=== PATIENT | male | born 1980 | race Caucasian/White ===

== ENCOUNTER 2016-12-08 22:32 | Emergency (ER) | payer OTHER ==
--- NOTE | 2016-12-08 22:58 | ED ORDER SUMMARY ---
..... Patient: RAFAELA LEW OrderSheet [facility] VisitID: [id number] [address] [place] [address] 36y, M Registration Date/Time: 12/08/2016 ORDER SHEET Weight: 77.1 kg (stated) Allergies: No Known Drug Allergy GENERAL ORDERS: MEDICATION ORDERS: Amoxicillin PO 500 mg (NOW) (22:57 12/08/2016 Antony Mukherjee.ANam-Espinoza) (Ack 22:57 JAREDanders R.N.) (23:00 JSanders R.N.) IV FLUIDS: ORDER SHEET NOTES: [Electronically signed by Fatuma Adler R.N. (23:06 12/08/2016)] [Electronically signed by Telma Hartman P.A.-C (23:06 12/08/2016)] [Electronically locked/signed by Fatuma Adler R.N. (23:06 12/08/2016)]
--- NOTE | 2016-12-08 22:58 | ED ORDER SUMMARY ---
..... Patient: RAFAELA LEW OrderSheet [facility] VisitID: [id number] [address] [place] [address] 36y, M Registration Date/Time: 12/08/2016 ORDER SHEET Weight: 77.1 kg (stated) Allergies: No Known Drug Allergy GENERAL ORDERS: MEDICATION ORDERS: Amoxicillin PO 500 mg (NOW) (22:57 12/08/2016 Antony Mukherjee.ANam-Espinoza) (Ack 22:57 JAREDanders R.N.) (23:00 JSanders R.N.) IV FLUIDS: ORDER SHEET NOTES: [Electronically signed by Fatuma Adler R.N. (23:06 12/08/2016)] [Electronically signed by Telma Hartman P.A.-C (23:06 12/08/2016)] [Electronically locked/signed by Fatuma Adler R.N. (23:06 12/08/2016)]
--- NOTE | 2016-12-08 22:58 | ED CLINICAL REPORT ---
Clinical Report - Physicians/Mid Levels [facility] [address] [place] [address] 12/08/2016 22:32 [id number] Time Seen: 23:01 Dec 08 2016. Arrived- By private vehicle. Historian- patient. HISTORY OF PRESENT ILLNESS Chief Complaint: DENTAL PAIN. This started today and is still present. Pain described as mild. No sore throat or mouth sores. He has had toothache. (Patient reports while eating chicken part of his left lower tooth and now having pain. Reports no difficulty swallowing. Denies any fevers or chills. Denies a cough. Patient is attempted to see a dentist next Monday or Monday.). REVIEW OF SYSTEMS No fever, cough, nausea or headache. All systems otherwise negative, except as recorded above. PAST HISTORY Problems: Dental Caries. Cervical Radiculopathy. Childhood heart murmur. Additional Surgeries: Knee Surgery. Right wrist nerve repair. Vasectomy. Medications: None. Allergies: No Known Drug Allergy. SOCIAL HISTORY Smoker- current status unknown. No drug use. ADDITIONAL NOTES The nursing notes have been reviewed. PHYSICAL EXAM Vital Signs: 12/08/2016 22:37 BP: 129/80. HR: 86. RR: 18. O2 saturation: 100%. Temp: 98.4 F. Pain level now: 8/10. Appearance: Alert. Head: Normal external inspection. ENT: Dental decay. Moderate dental tenderness (lower left first molar). Pharynx normal. Lips normal. Gums normal. Uvula midline. (fx of molar tooth). No purulent nasal discharge. Neck: Trachea midline. No adenopathy. CVS: Normal heart rate and rhythm. Heart sounds normal. Respiratory: No respiratory distress. Breath sounds normal. Abdomen: Soft. Skin: No rash. PROGRESS AND PROCEDURES Course of Care: NO signs of uvula shift, no facial swelling. No distress. Pt stable. No signs of Pancho angina. Patient tolerating by mouth well. Afebrile. Euvolimic. Patient is stable. Symptoms better. Patient/family counseled. Disposition: Discharged. CLINICAL IMPRESSION Moderate dental pain. INSTRUCTIONS Drink plenty of fluids. Prescription Medications: Hydrocodone/APAP 5mg / 325mg: take 1 orally every 6 hours as needed for pain. Dispense twelve (12). No refill. Amoxicillin 500 mg tablets: Take 1 orally every 8 hours for 10 days. Dispense thirty (30). No refills. Follow-up: Follow up with a specialist. (Electronically signed by Telma Hartman P.A.-C 12/08/2016 23:06)
--- NOTE | 2016-12-08 22:58 | ED CLINICAL REPORT ---
Clinical Report - Physicians/Mid Levels [facility] [address] [place] [address] 12/08/2016 22:32 [id number] Time Seen: 23:01 Dec 08 2016. Arrived- By private vehicle. Historian- patient. HISTORY OF PRESENT ILLNESS Chief Complaint: DENTAL PAIN. This started today and is still present. Pain described as mild. No sore throat or mouth sores. He has had toothache. (Patient reports while eating chicken part of his left lower tooth and now having pain. Reports no difficulty swallowing. Denies any fevers or chills. Denies a cough. Patient is attempted to see a dentist next Monday or Monday.). REVIEW OF SYSTEMS No fever, cough, nausea or headache. All systems otherwise negative, except as recorded above. PAST HISTORY Problems: Dental Caries. Cervical Radiculopathy. Childhood heart murmur. Additional Surgeries: Knee Surgery. Right wrist nerve repair. Vasectomy. Medications: None. Allergies: No Known Drug Allergy. SOCIAL HISTORY Smoker- current status unknown. No drug use. ADDITIONAL NOTES The nursing notes have been reviewed. PHYSICAL EXAM Vital Signs: 12/08/2016 22:37 BP: 129/80. HR: 86. RR: 18. O2 saturation: 100%. Temp: 98.4 F. Pain level now: 8/10. Appearance: Alert. Head: Normal external inspection. ENT: Dental decay. Moderate dental tenderness (lower left first molar). Pharynx normal. Lips normal. Gums normal. Uvula midline. (fx of molar tooth). No purulent nasal discharge. Neck: Trachea midline. No adenopathy. CVS: Normal heart rate and rhythm. Heart sounds normal. Respiratory: No respiratory distress. Breath sounds normal. Abdomen: Soft. Skin: No rash. PROGRESS AND PROCEDURES Course of Care: NO signs of uvula shift, no facial swelling. No distress. Pt stable. No signs of Pancho angina. Patient tolerating by mouth well. Afebrile. Euvolimic. Patient is stable. Symptoms better. Patient/family counseled. Disposition: Discharged. CLINICAL IMPRESSION Moderate dental pain. INSTRUCTIONS Drink plenty of fluids. Prescription Medications: Hydrocodone/APAP 5mg / 325mg: take 1 orally every 6 hours as needed for pain. Dispense twelve (12). No refill. Amoxicillin 500 mg tablets: Take 1 orally every 8 hours for 10 days. Dispense thirty (30). No refills. Follow-up: Follow up with a specialist. (Electronically signed by Telma Hartman P.A.-C 12/08/2016 23:06)
--- NOTE | 2016-12-08 22:58 | ED NURSING NOTES ---
Clinical Report - Nurses [address] [place] [address] 12/08/2016 22:32 [id number] Triage time 22:37 Dec 08 2016. Acuity: LEVEL 4. Chief Complaint: LEFT LOWER TOOTHACHE and CHIPPED TOOTH. 22:42 12/08/16. SEPSIS SCREEN: Sepsis Screen. Negative (no infection suspected/documented). MARIA M COMA SCORE: Maria M Coma Scale: 15- eyes open spontaneously (4); best verbal response- oriented x 4 (5); best motor response- obeys commands (6). --22:42 Fatuma Adler R.N. 22:37 12/08/16. BP: 129/80 (regular adult cuff) taken on the left arm, while sitting. HR: 86. RR: 18. O2 saturation: 100% on room air. Temp: 98.4 F (oral). Pain level now: 8. --22:42 Fatuma Adler R.N. Weight: 77.1 kg stated. Height/Length: 70 inches Per Patient. BMI: 24.4. --22:38 Fatuma Adler R.N. Medications None. --22:40 Fatuma Adler R.N. Allergies No Known Drug Allergy. --22:40 Fatuma Adler R.N. History Arrived by private vehicle. Historian: patient. Primary physician (Dr Pena). Onset. (2 hours ago). ( Patient ate something hard and broke his toothe, he thinks he swallowed it). He has had a moderate toothache (left lower molar). 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 PAST MEDICAL HX: Dental caries. SOCIAL HX: Current every day heavy tobacco smoker- less than 1 pack per day. Occasional alcohol use; consumes beer. No drug use. No infectious disease exposure. ABUSE ASSESSMENT: No report of abuse. --22:42 Fatuma Adler R.N. PROBLEMS: Cervical Radiculopathy. Childhood heart murmur. --22:40 Fatuma Adler R.N. ADDITIONAL SURGERIES: Knee Surgery. Right wrist nerve repair. Vasectomy. --22:40 Fatuma Adler R.N. Interventions ID band on patient. To treatment room. --22:42 Fatuma Adler R.N. PHYSICAL ASSESSMENT 22:42 12/08/16. Ambulatory to room. GENERAL / NEURO / PSYCH: Alert. Oriented X 4. Appears in no acute distress. Appears in pain. HEENT: Pupils equal, round and reactive to light. Pharynx within normal limits. Voice within normal limits. Dental decay (left lower molar area). Mucous membranes are pink. RESPIRATORY: Respirations not labored. CVS: Capillary refill less than 2 seconds. SKIN: Skin is warm. Normal skin turgor. --22:42 Fatuma Adler R.N. NURSING PROGRESS NOTES 22:43 12/08/16. The plan of care for this patient has been created. Head of bed elevated. Reassurance given. Two patient identifiers checked. Call light placed in reach. Side rails up x 1. Bed placed in lowest position. Brakes of bed on. Patient ready for evaluation- chart flagged and ED physician notified. --22:43 Fatuma Adler R.N. 22:59 12/08/2016 Amoxicillin PO Capsules 500 mg given. Allergies verified and confirmed 5 rights. --23:00 Fatuma Adler R.N. DISPOSITION / DISCHARGE 23:12/08/16. Departure time: 23:Dec 08 2016. Condition at departure: unchanged. No learning barriers present. Discharge instructions provided and reviewed with the patient. Reviewed medication(s) side effects, precautions, dosing and course information. Prescription(s) given to the patient. Patient verbalized understanding. Written instructions provided in Irish. The patient was discharged by the physician assistant men's soccer coach. He was discharged home. He left the Emergency Department ambulatory and via private vehicle. Patient driving. --23:05 Fatuma Adler R.N. 23:03 12/08/16. BP: 126/77. HR: 96. RR: 18. O2 saturation: 99%. Temp: 98.4 F (oral). Pain level now: 8/10. --23:05 Fatuma Adler R.N. 23:05 12/08/16. ( YOU ok with elevated HR). --23:05 Fatuma Adler R.N. Locked/Released at 12/08/2016 23:06 by Fatuma Adler R.N.
--- NOTE | 2016-12-08 22:58 | ED NURSING NOTES ---
Clinical Report - Nurses [address] [place] [address] 12/08/2016 22:32 [id number] Triage time 22:37 Dec 08 2016. Acuity: LEVEL 4. Chief Complaint: LEFT LOWER TOOTHACHE and CHIPPED TOOTH. 22:42 12/08/16. SEPSIS SCREEN: Sepsis Screen. Negative (no infection suspected/documented). MARIA M COMA SCORE: Maria M Coma Scale: 15- eyes open spontaneously (4); best verbal response- oriented x 4 (5); best motor response- obeys commands (6). --22:42 Fatuma Adler R.N. 22:37 12/08/16. BP: 129/80 (regular adult cuff) taken on the left arm, while sitting. HR: 86. RR: 18. O2 saturation: 100% on room air. Temp: 98.4 F (oral). Pain level now: 8. --22:42 Fatuma Adler R.N. Weight: 77.1 kg stated. Height/Length: 70 inches Per Patient. BMI: 24.4. --22:38 Fatuma Adler R.N. Medications None. --22:40 Fatuma Adler R.N. Allergies No Known Drug Allergy. --22:40 Fatuma Adler R.N. History Arrived by private vehicle. Historian: patient. Primary physician (Dr Pena). Onset. (2 hours ago). ( Patient ate something hard and broke his toothe, he thinks he swallowed it). He has had a moderate toothache (left lower molar). 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 PAST MEDICAL HX: Dental caries. SOCIAL HX: Current every day heavy tobacco smoker- less than 1 pack per day. Occasional alcohol use; consumes beer. No drug use. No infectious disease exposure. ABUSE ASSESSMENT: No report of abuse. --22:42 Fatuma Adler R.N. PROBLEMS: Cervical Radiculopathy. Childhood heart murmur. --22:40 Fatuma Adler R.N. ADDITIONAL SURGERIES: Knee Surgery. Right wrist nerve repair. Vasectomy. --22:40 Fatuma Adler R.N. Interventions ID band on patient. To treatment room. --22:42 Fatuma Adler R.N. PHYSICAL ASSESSMENT 22:42 12/08/16. Ambulatory to room. GENERAL / NEURO / PSYCH: Alert. Oriented X 4. Appears in no acute distress. Appears in pain. HEENT: Pupils equal, round and reactive to light. Pharynx within normal limits. Voice within normal limits. Dental decay (left lower molar area). Mucous membranes are pink. RESPIRATORY: Respirations not labored. CVS: Capillary refill less than 2 seconds. SKIN: Skin is warm. Normal skin turgor. --22:42 Fatuma Adler R.N. NURSING PROGRESS NOTES 22:43 12/08/16. The plan of care for this patient has been created. Head of bed elevated. Reassurance given. Two patient identifiers checked. Call light placed in reach. Side rails up x 1. Bed placed in lowest position. Brakes of bed on. Patient ready for evaluation- chart flagged and ED physician notified. --22:43 Fatuma Adler R.N. 22:59 12/08/2016 Amoxicillin PO Capsules 500 mg given. Allergies verified and confirmed 5 rights. --23:00 Fatuma Adler R.N. DISPOSITION / DISCHARGE 23:12/08/16. Departure time: 23:Dec 08 2016. Condition at departure: unchanged. No learning barriers present. Discharge instructions provided and reviewed with the patient. Reviewed medication(s) side effects, precautions, dosing and course information. Prescription(s) given to the patient. Patient verbalized understanding. Written instructions provided in Kazakh. The patient was discharged by the physician trading assistant. He was discharged home. He left the Emergency Department ambulatory and via private vehicle. Patient driving. --23:05 Fatuma Adler R.N. 23:03 12/08/16. BP: 126/77. HR: 96. RR: 18. O2 saturation: 99%. Temp: 98.4 F (oral). Pain level now: 8/10. --23:05 Fatuma Adler R.N. 23:05 12/08/16. ( YOU ok with elevated HR). --23:05 Fatuma Adler R.N. Locked/Released at 12/08/2016 23:06 by Fatuma Adler R.N.
--- NOTE | 2016-12-08 23:06 | ED MAR SUMMARY ---
..... Medication Administration Record [facility] [address] [place] [address] Patient: RAFAELA LEW Visit ID: [id number] 36y, M Weight: 77.1 kg Height/Length: 70 in BMI: 24.4 ALLERGIES: No Known Drug Allergy Given 22:59 12/08/2016 Fatuma Adler R.N. Medication Administered: AMOXICILLIN [PO], Dose: 500 mg Capsules PO. Medication Ordered: Amoxicillin PO 500 mg (NOW).
--- NOTE | 2016-12-08 23:06 | ED DISCHARGE INSTRUCTIONS ---
Patient: RAFAELA LEW General Instructions [facility] VisitID: [id number] [place] [address] 36y, M Registration Date/Time: 12/08/2016 Moderate dental pain. INSTRUCTIONS Drink plenty of fluids. Prescription Medications: Hydrocodone/APAP 5mg / 325mg: take 1 orally every 6 hours as needed for pain. Dispense twelve (12). No refill. Amoxicillin 500 mg tablets: Take 1 orally every 8 hours for 10 days. Dispense thirty (30). No refills. Follow-up: Follow up with a specialist. ADDITIONAL INFORMATION Dental Pain A crack or cavity in the tooth, which exposes the sensitive inner area of the tooth can cause tooth pain. An infection in the gum or the root of the tooth can cause pain and swelling. The pain is often made worse by drinking hot or cold fluids, or biting on hard foods. Pain may spread from the tooth to the ear or jaw on the same side. Home Care: Avoid hot and cold foods and liquids since your tooth may be sensitive to temperature changes. If your tooth is chipped or cracked, or if there is a large open cavity, apply OIL OF CLOVES (available [id number] in drug stores) directly to the tooth to reduce pain. Some pharmacies carry an [id number] "toothache kit." This contains a paste, which can be applied over the exposed tooth to decrease sensitivity. A cold pack on your jaw over the sore area may help reduce pain. You may use acetaminophen (Tylenol) or ibuprofen (Motrin, Advil) to control pain, unless another medicine was prescribed. [ NOTE: If you have chronic liver or kidney disease or ever had a stomach ulcer or GI bleeding, talk with your doctor before using these medicines.] If you have signs of an infection, an antibiotic will be given. Take it as directed. Follow-Up as directed with a dentist. Your pain may go away with the treatment given. However, only a dentist can fully evaluate and treat the cause and prevent the pain from coming back again. TOOTHACHE IS A SIGN OF DISEASE IN YOUR TOOTH AND SHOULD BE EXAMINED AND TREATED BY A DENTIST. Get Prompt Medical Attention if any of the following occur: Your face becomes swollen or red Pain worsens or spreads to the neck Fever over 100.4 F (38.0 C) Unusual drowsiness; headache or stiff neck; weakness or fainting Pus drains from the tooth Difficulty swallowing or breathing Hydrocodone Bitartrate, Acetaminophen Oral tablet What is this medicine? ACETAMINOPHEN; HYDROCODONE (a set a RONN ileana fen; tory droe KOE done) is a pain reliever. It is used to treat mild to moderate pain. How should I use this medicine? Take this medicine by mouth. Swallow it with a full glass of water. Follow the directions on the prescription label. If the medicine upsets your stomach, take the medicine with food or milk. Do not take more than you are told to take. Talk to your learning disabilities teacher regarding the use of this medicine in children. This medicine is not approved for use in children. What side effects may I notice from receiving this medicine? Side effects that you should report to your doctor or health pulmonary care nurse as soon as possible: allergic reactions like skin rash, itching or hives, swelling of the face, lips, or tongue breathing problems confusion feeling faint or lightheaded, falls stomach pain yellowing of the eyes or skin Side effects that usually do not require medical attention (report to your doctor or health pulmonary care nurse if they continue or are bothersome): nausea, vomiting stomach upset What may interact with this medicine? alcohol antihistamines isoniazid medicines for depression, anxiety, or psychotic disturbances medicines for sleep muscle relaxants naltrexone narcotic medicines (opiates) for pain phenobarbital ritonavir tramadol What if I miss a dose? If you miss a dose, take it as soon as you can. If it is almost time for your next dose, take only that dose. Do not take double or extra doses. Where should I keep my medicine? Keep out of the reach of children. This medicine can be abused. Keep your medicine in a safe place to protect it from theft. Do not share this medicine with anyone. Selling or giving away this medicine is dangerous and against the law. Store at room temperature between 15 and 30 degrees C (59 and 86 degrees F). Protect from light. Keep container tightly closed. Throw away any unused medicine after the expiration date. Discard unused medicine and used packaging carefully. Pets and children can be harmed if they find used or lost packages. What should I tell my health care provider before I take this medicine? They need to know if you have any of these conditions: brain tumor Crohn's disease, inflammatory bowel disease, or ulcerative colitis drink more than 3 alcohol-containing drinks per day drug abuse or addiction head injury heart or circulation problems kidney disease or problems going to the bathroom liver disease lung disease, asthma, or breathing problems an unusual or allergic reaction to acetaminophen, hydrocodone, other opioid analgesics, other medicines, foods, dyes, or preservatives or trying to get breast-feeding What should I watch for while using this medicine? Tell your doctor or health pulmonary care nurse if your pain does not go away, if it gets worse, or if you have new or a different type of pain. You may develop tolerance to the medicine. Tolerance means that you will need a higher dose of the medicine for pain relief. Tolerance is normal and is expected if you take the medicine for a long time. Do not suddenly stop taking your medicine because you may develop a severe reaction. Your body becomes used to the medicine. This does NOT mean you are addicted. Addiction is a behavior related to getting and using a drug for a non-medical reason. If you have pain, you have a medical reason to take pain medicine. Your doctor will tell you how much medicine to take. If your doctor wants you to stop the medicine, the dose will be slowly lowered over time to avoid any side effects. You may get drowsy or dizzy when you first start taking the medicine or change doses. Do not drive, use machinery, or do anything that may be dangerous until you know how the medicine affects you. Stand or sit up slowly. There are different types of narcotic medicines (opiates) for pain. If you take more than one type at the same time, you may have more side effects. Give your health care provider a list of all medicines you use. Your doctor will tell you how much medicine to take. Do not take more medicine than directed. Call emergency for help if you have problems breathing. The medicine will cause constipation. Try to have a bowel movement at least every 2 to 3 days. If you do not have a bowel movement for 3 days, call your doctor or health pulmonary care nurse. Too much acetaminophen can be very dangerous. Do not take Tylenol (acetaminophen) or medicines that contain acetaminophen with this medicine. Many non-prescription medicines contain acetaminophen. Always read the labels carefully. You have been given the following additional information: Dental Pain Hydrocodone Bitartrate, Acetaminophen Oral tablet (Electronically signed by Telma Hartman P.A.-C 12/08/2016 23:06)
--- NOTE | 2016-12-08 23:06 | ED MED RECONCILIATION SUMMARY ---
Patient: RAFAELA LEW Medication Reconciliation Report [facility] VisitID: [id number] [address] [place] [address] 36y, M Registration Date/Time: 12/08/2016 Weight: 77.1 kg Height/Length: 70 in. BMI: 24.4 ALLERGIES: No Known Drug Allergy The patient's Home Medications are listed below: NONE. The source(s) of the original Home Medication information: Not obtained. The following Medications were given to the patient in the Emergency Department: Amoxicillin [PO] PO 500 mg, administered: 12/08/2016 10:59:00 PM The following Medications were prescribed to the patient: Hydrocodone/APAP 5mg / 325mg: take 1 orally every 6 hours as needed for pain. Dispense twelve (12). No refill. -- Telma Hartman, P.ANam-Espinoza Amoxicillin 500 mg tablets: Take 1 orally every 8 hours for 10 days. Dispense thirty (30). No refills. -- Telma Hartman, P.A.-C
--- NOTE | 2016-12-08 23:06 | ED DISCHARGE INSTRUCTIONS ---
Patient: RAFAELA LEW General Instructions [facility] VisitID: [id number] [place] [address] 36y, M Registration Date/Time: 12/08/2016 Moderate dental pain. INSTRUCTIONS Drink plenty of fluids. Prescription Medications: Hydrocodone/APAP 5mg / 325mg: take 1 orally every 6 hours as needed for pain. Dispense twelve (12). No refill. Amoxicillin 500 mg tablets: Take 1 orally every 8 hours for 10 days. Dispense thirty (30). No refills. Follow-up: Follow up with a specialist. ADDITIONAL INFORMATION Dental Pain A crack or cavity in the tooth, which exposes the sensitive inner area of the tooth can cause tooth pain. An infection in the gum or the root of the tooth can cause pain and swelling. The pain is often made worse by drinking hot or cold fluids, or biting on hard foods. Pain may spread from the tooth to the ear or jaw on the same side. Home Care: Avoid hot and cold foods and liquids since your tooth may be sensitive to temperature changes. If your tooth is chipped or cracked, or if there is a large open cavity, apply OIL OF CLOVES (available [id number] in drug stores) directly to the tooth to reduce pain. Some pharmacies carry an [id number] "toothache kit." This contains a paste, which can be applied over the exposed tooth to decrease sensitivity. A cold pack on your jaw over the sore area may help reduce pain. You may use acetaminophen (Tylenol) or ibuprofen (Motrin, Advil) to control pain, unless another medicine was prescribed. [ NOTE: If you have chronic liver or kidney disease or ever had a stomach ulcer or GI bleeding, talk with your doctor before using these medicines.] If you have signs of an infection, an antibiotic will be given. Take it as directed. Follow-Up as directed with a dentist. Your pain may go away with the treatment given. However, only a dentist can fully evaluate and treat the cause and prevent the pain from coming back again. TOOTHACHE IS A SIGN OF DISEASE IN YOUR TOOTH AND SHOULD BE EXAMINED AND TREATED BY A DENTIST. Get Prompt Medical Attention if any of the following occur: Your face becomes swollen or red Pain worsens or spreads to the neck Fever over 100.4 F (38.0 C) Unusual drowsiness; headache or stiff neck; weakness or fainting Pus drains from the tooth Difficulty swallowing or breathing Hydrocodone Bitartrate, Acetaminophen Oral tablet What is this medicine? ACETAMINOPHEN; HYDROCODONE (a set a RONN ileana fen; tory droe KOE done) is a pain reliever. It is used to treat mild to moderate pain. How should I use this medicine? Take this medicine by mouth. Swallow it with a full glass of water. Follow the directions on the prescription label. If the medicine upsets your stomach, take the medicine with food or milk. Do not take more than you are told to take. Talk to your appliquer zigzag regarding the use of this medicine in children. This medicine is not approved for use in children. What side effects may I notice from receiving this medicine? Side effects that you should report to your doctor or health childcare administrator as soon as possible: allergic reactions like skin rash, itching or hives, swelling of the face, lips, or tongue breathing problems confusion feeling faint or lightheaded, falls stomach pain yellowing of the eyes or skin Side effects that usually do not require medical attention (report to your doctor or health childcare administrator if they continue or are bothersome): nausea, vomiting stomach upset What may interact with this medicine? alcohol antihistamines isoniazid medicines for depression, anxiety, or psychotic disturbances medicines for sleep muscle relaxants naltrexone narcotic medicines (opiates) for pain phenobarbital ritonavir tramadol What if I miss a dose? If you miss a dose, take it as soon as you can. If it is almost time for your next dose, take only that dose. Do not take double or extra doses. Where should I keep my medicine? Keep out of the reach of children. This medicine can be abused. Keep your medicine in a safe place to protect it from theft. Do not share this medicine with anyone. Selling or giving away this medicine is dangerous and against the law. Store at room temperature between 15 and 30 degrees C (59 and 86 degrees F). Protect from light. Keep container tightly closed. Throw away any unused medicine after the expiration date. Discard unused medicine and used packaging carefully. Pets and children can be harmed if they find used or lost packages. What should I tell my health care provider before I take this medicine? They need to know if you have any of these conditions: brain tumor Crohn's disease, inflammatory bowel disease, or ulcerative colitis drink more than 3 alcohol-containing drinks per day drug abuse or addiction head injury heart or circulation problems kidney disease or problems going to the bathroom liver disease lung disease, asthma, or breathing problems an unusual or allergic reaction to acetaminophen, hydrocodone, other opioid analgesics, other medicines, foods, dyes, or preservatives or trying to get breast-feeding What should I watch for while using this medicine? Tell your doctor or health childcare administrator if your pain does not go away, if it gets worse, or if you have new or a different type of pain. You may develop tolerance to the medicine. Tolerance means that you will need a higher dose of the medicine for pain relief. Tolerance is normal and is expected if you take the medicine for a long time. Do not suddenly stop taking your medicine because you may develop a severe reaction. Your body becomes used to the medicine. This does NOT mean you are addicted. Addiction is a behavior related to getting and using a drug for a non-medical reason. If you have pain, you have a medical reason to take pain medicine. Your doctor will tell you how much medicine to take. If your doctor wants you to stop the medicine, the dose will be slowly lowered over time to avoid any side effects. You may get drowsy or dizzy when you first start taking the medicine or change doses. Do not drive, use machinery, or do anything that may be dangerous until you know how the medicine affects you. Stand or sit up slowly. There are different types of narcotic medicines (opiates) for pain. If you take more than one type at the same time, you may have more side effects. Give your health care provider a list of all medicines you use. Your doctor will tell you how much medicine to take. Do not take more medicine than directed. Call emergency for help if you have problems breathing. The medicine will cause constipation. Try to have a bowel movement at least every 2 to 3 days. If you do not have a bowel movement for 3 days, call your doctor or health childcare administrator. Too much acetaminophen can be very dangerous. Do not take Tylenol (acetaminophen) or medicines that contain acetaminophen with this medicine. Many non-prescription medicines contain acetaminophen. Always read the labels carefully. You have been given the following additional information: Dental Pain Hydrocodone Bitartrate, Acetaminophen Oral tablet (Electronically signed by Telma Hartman P.A.-C 12/08/2016 23:06)
--- NOTE | 2016-12-08 23:06 | ED MED RECONCILIATION SUMMARY ---
Patient: RAFAELA LEW Medication Reconciliation Report [facility] VisitID: [id number] [place] [address] 36y, M Registration Date/Time: 12/08/2016 Weight: 77.1 kg Height/Length: 70 in. BMI: 24.4 ALLERGIES: No Known Drug Allergy The patient's Home Medications are listed below: NONE. The source(s) of the original Home Medication information: Not obtained. The following Medications were given to the patient in the Emergency Department: Amoxicillin [PO] PO 500 mg, administered: 12/08/2016 10:59:00 PM The following Medications were prescribed to the patient: Hydrocodone/APAP 5mg / 325mg: take 1 orally every 6 hours as needed for pain. Dispense twelve (12). No refill. -- Telma Hartman, P.ANam-Espinoza Amoxicillin 500 mg tablets: Take 1 orally every 8 hours for 10 days. Dispense thirty (30). No refills. -- Telma Hartman, P.A.-C
--- NOTE | 2016-12-08 23:06 | ED MAR SUMMARY ---
..... Medication Administration Record [facility] [address] [place] [address] Patient: RAFAELA LEW Visit ID: [id number] 36y, M Weight: 77.1 kg Height/Length: 70 in BMI: 24.4 ALLERGIES: No Known Drug Allergy Given 22:59 12/08/2016 Fatuma Adler R.N. Medication Administered: AMOXICILLIN [PO], Dose: 500 mg Capsules PO. Medication Ordered: Amoxicillin PO 500 mg (NOW).
== END 2016-12-08 23:05 | disposition home or self-care (01) ==
LOC: ED SRH 22:32
DX: K08.89 Other specified disorders of teeth and supporting structures (principal); F17.210 Nicotine dependence, cigarettes, uncomplicated